=== PATIENT | female | born 1985 | race Two or more races ===

== ENCOUNTER 2023-12-12 14:03 | Emergency (ER) | payer OTHER | END 2023-12-12 14:25 | disposition home or self-care (01) | LOC: CSHERS 14:03 | DX: Z47.2 Encounter for removal of internal fixation device (principal); I10 Essential (primary) hypertension; G91.9 Hydrocephalus, unspecified; Z55.6 Problems related to health literacy; Z98.2 Presence of cerebrospinal fluid drainage device | CPT/HCPCS: 99283 ==

== ENCOUNTER 2024-04-11 04:47 | Emergency (ER) | payer OTHER ==
[2024-04-11] MEDS ORDERED: diphenhydrAMINE 50 MG/ML VIAL ONE (05:14)
[2024-04-11] MEDS ORDERED: Dexamethasone 4 mg/ml Vial ONE (05:15)
[2024-04-11] MEDS ORDERED: Prochlorperazine 10 MG/2 ML VIAL ONE (05:15)
== END 2024-04-11 08:49 | disposition home or self-care (01) ==
LOC: CSHERS 04:47
DX: G43.909 Migraine, unspecified, not intractable, without status migrainosus (principal); I10 Essential (primary) hypertension; E11.9 Type 2 diabetes mellitus without complications
CPT/HCPCS: 96374; 96375; J0780; J1100; J1200